=== PATIENT | male | born 1985 | race Caucasian/White ===

== ENCOUNTER 2018-07-18 17:25 | Emergency (ER) | payer OTHER ==
[~2018-07-18] VITALS: Ht 175.3 cm; Wt 81.8 kg
[2018-07-18 17:47] VITALS: BP 156/104
[2018-07-18] MEDS ORDERED: BUPR100 PO (17:52)
== END 2018-07-18 20:26 | disposition left against medical advice (07) ==
LOC: EMS 17:26
DX: S71.001A Unspecified open wound, right hip, initial encounter (principal); F17.210 Nicotine dependence, cigarettes, uncomplicated; Z53.21 Procedure and treatment not carried out due to patient leaving prior to being seen by health care provider; X58.XXXA Exposure to other specified factors, initial encounter; Y93.89 Activity, other specified; Y92.89 Other specified places as the place of occurrence of the external cause; Y99.8 Other external cause status